=== PATIENT | female | born 1970 | race Caucasian/White ===

== ENCOUNTER 2017-05-07 11:52 | Emergency (ER) | payer OTHER ==
[~2017-05-07] VITALS: Ht 167.6 cm; Wt 97.5 kg
[~2017-05-07 11:52] MED LIST: AMOXICILLIN 50500 M1 PO; BENADRYL25 MG PO; CIPROFLOXACIN500 M1 PO; CLARITIN10 MG PO; FLEXERIL PO; GEMFIBROZIL 60600 M1 PO; IBUPROFEN 400400 M2 PO; IBUPROFEN 600600 M1 PO; IBUPROFEN 800800 MG PO; KEPPRA XR750 MG PO; NICOTINE TRANSD21 M1; PAIN & FEVER325 MG; PENICILLIN V P500 MG PO; PERCOCET 5-3251 EACH PO; PREDNISONE 10 M10 MG PO; PYRIDIUM200 MG PO; TRAMADOL 50 MG50 MG PO; TYLENOL325 MG PO; ZANTAC 150MG T150 M1 PO; ZONEGRAN100 MG PO; ZPAK PO
[2017-05-07] MEDS ORDERED: HYDROCODONE-AP1 EAC6 PO (13:35)
[2017-05-07] MEDS ORDERED: FLEXERIL PO (13:35)
[2017-05-07] MEDS ORDERED: MOBIC15 MG PO (13:35)
[2017-05-07 14:16] VITALS: BP 123/84
== END 2017-05-07 14:17 | disposition home or self-care (01) ==
LOC: ER 11:52
DX: S39.012A Strain of muscle, fascia and tendon of lower back, initial encounter (principal); M54.2 Cervicalgia; F17.210 Nicotine dependence, cigarettes, uncomplicated; F10.99 Alcohol use, unspecified with unspecified alcohol-induced disorder; Z88.5 Allergy status to narcotic agent; V49.40XA Driver injured in collision with unspecified motor vehicles in traffic accident, initial encounter; Y93.I9 Activity, other involving external motion; Y92.89 Other specified places as the place of occurrence of the external cause; Y99.8 Other external cause status

== ENCOUNTER 2019-05-10 10:57 | Emergency (ER) | payer OTHER ==
[~2019-05-10] VITALS: Ht 167.6 cm; Wt 97.5 kg
[~2019-05-10 10:57] MED LIST changes: +FLONASE 0.05%50 MCG NASAL; +HYDROCODONE-AP1 EAC6 PO; +MOBIC15 MG PO; +TESSALON PERLE100 MG PO; +VENTOLIN HFA 1818 GM INH
[2019-05-10] MEDS ORDERED: VENTOLIN HFA 1818 GM INH (12:09)
[2019-05-10] MEDS ORDERED: TESSALON PERLE100 M1 PO (12:09)
[2019-05-10] MEDS ORDERED: PREDNISONE 10 M10 MG PO (12:09)
[2019-05-10] MEDS ORDERED: AUGMENTIN 875-1 EACH PO (12:09)
[2019-05-10 12:30] VITALS: BP 134/78
== END 2019-05-10 12:48 | disposition home or self-care (01) ==
LOC: ER 10:57
DX: J40 Bronchitis, not specified as acute or chronic (principal); J32.9 Chronic sinusitis, unspecified; F17.210 Nicotine dependence, cigarettes, uncomplicated; Z98.890 Other specified postprocedural states; Z98.51 Tubal ligation status; Z90.710 Acquired absence of both cervix and uterus; Z88.6 Allergy status to analgesic agent

== ENCOUNTER 2020-01-30 02:42 | Emergency (ER) | payer OTHER ==
[~2020-01-30] VITALS: Ht 167.6 cm; Wt 93.4 kg
[~2020-01-30 02:42] MED LIST changes: +AUGMENTIN 875-1 EACH PO; +TESSALON PERLE100 M1 PO
[2020-01-30] MEDS ORDERED: FLONASE 0.05%50 MCG NARES (02:52)
[2020-01-30] MEDS ORDERED: AMITIZA 24 MCG24 MC1 PO (02:52)
[2020-01-30] MEDS ORDERED: MOVANTIK25 MG PO (02:52)
[2020-01-30] MEDS ORDERED: KEFLEX500 M1 PO (06:17)
[2020-01-30 06:20] VITALS: BP 111/70
== END 2020-01-30 06:36 | disposition home or self-care (01) ==
LOC: ER 02:42
DX: S91.011A Laceration without foreign body, right ankle, initial encounter (principal); G40.909 Epilepsy, unspecified, not intractable, without status epilepticus; F17.210 Nicotine dependence, cigarettes, uncomplicated; Z79.899 Other long term (current) drug therapy; Z98.51 Tubal ligation status; Z90.710 Acquired absence of both cervix and uterus; W25.XXXA Contact with sharp glass, initial encounter; Y93.89 Activity, other specified; Y92.89 Other specified places as the place of occurrence of the external cause; Y99.9 Unspecified external cause status

== ENCOUNTER 2020-03-06 21:51 | Emergency (ER) | payer OTHER ==
[~2020-03-06] VITALS: Ht 167.6 cm; Wt 94.3 kg
[~2020-03-06 21:51] MED LIST changes: +AMITIZA 24 MCG24 MC1 PO; +FLONASE 0.05%50 MCG NARES; +KEFLEX500 M1 PO; +MOVANTIK25 MG PO
[2020-03-06 21:55] VITALS: BP 104/70
[2020-03-07] MEDS ORDERED: CEPHALEXIN500 MG PO (00:38)
== END 2020-03-07 01:15 | disposition home or self-care (01) ==
LOC: ER 21:51
DX: I80.8 Phlebitis and thrombophlebitis of other sites (principal); F17.210 Nicotine dependence, cigarettes, uncomplicated; Z90.710 Acquired absence of both cervix and uterus; Z79.899 Other long term (current) drug therapy